=== PATIENT | female | born 1960 | race Caucasian/White ===

== ENCOUNTER → 2018-02-07 | Outpatient (CLI) | payer OTHER | LOC: RAD 08:03 | DX: Z12.31 Encounter for screening mammogram for malignant neoplasm of breast (principal) ==

== ENCOUNTER → 2019-02-19 | Outpatient (CLI) | payer OTHER | LOC: RAD 01:13 | DX: Z12.31 Encounter for screening mammogram for malignant neoplasm of breast (principal) ==

== ENCOUNTER → 2021-03-06 | Outpatient (CLI) | payer OTHER | LOC: BC 10:15 | DX: Z12.31 Encounter for screening mammogram for malignant neoplasm of breast (principal) ==